=== PATIENT | female | born 1990 | race Hispanic/Latino ===

== ENCOUNTER 2018-12-07 07:31 | Outpatient (CLI) | payer OTHER ==
--- NOTE | 2018-12-07 09:12 | ULT ---
Exam: Pelvic ultrasound including Transabdominal, Transvaginal, And Vascular Duplex with color and spectral Doppler imaging: HISTORY: Pelvic pain COMPARISON: None FINDINGS: The uterus is9.7 x 4.1 x 3.8 cm. Endometrial thickness:0.6 cm with trace fluid in the lower uterine segment. Right ovary:1.5 x 1.8 x 2.8 cm with a small up to 1.2 cm follicle cyst Left ovary:2.6 x 1.6 x 1.5 cm with up to 1.3 cm small follicle cyst No abscess or significant abnormal fluid collection. Vascular duplex examination demonstrates no evidence for ovarian torsion IMPRESSION: No significant acute process within the pelvis
== END 2018-12-07 07:32 | disposition home or self-care (01) ==
LOC: MADULT 07:31
PROVIDERS: ATTEND Family Medicine
DX: R10.2 Pelvic and perineal pain (principal)
CPT/HCPCS: 76856

== ENCOUNTER 2021-10-15 08:12 | Outpatient (CLI) | payer OTHER | END 2021-10-15 08:13 | disposition home or self-care (01) | LOC: MADRAD 08:12 | PROVIDERS: ATTEND Family Medicine | DX: M54.12 Radiculopathy, cervical region (principal) | CPT/HCPCS: 72040 ==

== ENCOUNTER 2022-04-20 10:50 | Outpatient (CLI) | payer OTHER ==
[2022-04-20 11:14] LABS: Bilirubin Negative (Negative); Blood, Urine Trace (Negative); Clarity Clear (Clear); Glucose, Urine (Dipstick) Negative (Negative); Ketone, Urine Negative (Negative); Leukocyte Trace (Negative); Nitrite Negative (Negative); Protein, Urine (Dipstick) Negative (Neg-Trace); Urobilinogen 0.2 mg/dL (Less than 2)
[2022-04-20 11:17] LABS: #Basophils 0.1 thou/uL (0.0-0.2); #Eosinphils 0.1 thou/uL (0.0-0.7); #Monocytes 0.4 thou/uL (0.11-0.59); #Neutrophils 4.9 thou/uL (1.40-6.50); %Basophils 0.7 % (0.0-1.0); %Eosinophils 1.7 % (0.0-10.0); %Lymphocytes 26.7 % (21.0-51.0); %Monocytes 5.4 % (0.0-10.0); %Neutrophils 65.4 % (42.0-75.0); Hemoglobin 13.3 g/dL (12.0-16.0); Mean Corpuscular HGB CONC 31.9 g/dL (32.0-36.0); Mean Corpuscular Volume 97.3 fL (78.0-98.0); Mean Platelet Volume 6.3 fL (7.4-10.4); Platelet Count 243 thou/uL (130-400); RBC Distribution Width 11.9 % (11.5-14.5); White Blood Cell (WBC) Count 7.4 thou/uL (4.8-10.8)
[2022-04-20 11:31] LABS: ALT (SGPT) 19 U/L (8-55); AST (SGOT) 17 U/L (5-34); Albumin 4.5 g/dL (3.5-5.0); Alkaline Phosphatase 75 U/L (40-110); Anion Gap 16 mmol/L (10-20); BUN (Urea Nitrogen) 7 mg/dL (7.0-18.7); Bilirubin, Total 0.6 mg/dL (0.2-1.2); Calc. Creatinine Clearance 0 mL/min (70-130); Carbon Dioxide 25 mmol/L (22-29); Cardiac Risk 7.1 (Less than 4.5); Chloride 102 mmol/L (98-107); Cholesterol 212 mg/dl (< 200 Desired); Estimated GFR 102; Glucose 93 mg/dL (70-105); HDL Cholesterol 30 mg/dL (>60 Neg Risk); Potassium 4.6 mmol/L (3.5-5.1); Protein, Total 7.5 g/dL (6.0-8.3); Sodium 138 mmol/L (136-145); Triglycerides 433 mg/dL (Less than 150)
[2022-04-20 12:01] LABS: RBC/HPF 0-3 HPF (0-3)
[2022-04-20 12:02] LABS: Bacteria/HPF Rare-Few HPF (None Seen); WBC/HPF 0-3 HPF (0-3)
[2022-04-20 17:22] LABS: Hemoglobin A1c 5.2 % (4.0-6.0)
[2022-04-20 18:42] LABS: HIV (1/2) Antibody/Antigen Non-Reactive (NonReactive); HIV 1/2 INDEX 0.29 S/CO (<1.00); Vitamin D, 25 Hydroxy 17.4 ng/ml (> 30.0)
== END 2022-04-20 10:51 | disposition home or self-care (01) ==
LOC: MADLABBHPM 10:50 → MADLAB 10:51
PROVIDERS: ATTEND Family Medicine
DX: Z00.00 Encounter for general adult medical examination without abnormal findings (principal)
CPT/HCPCS: 80053; 80061; 81001; 82306; 83036; 84443; 85025; 87389